=== PATIENT | male | born 1980 | race Caucasian/White ===

== ENCOUNTER 2018-07-28 03:45 | Emergency (ER) | payer OTHER ==
[~2018-07-28] VITALS: Ht 177.8 cm; Wt 118.2 kg
[2018-07-28 03:49] VITALS: BP 160/107; TEMP 97.6
[2018-07-28] MEDS ORDERED: LOTREL 10 MG-201 CAP PO (04:25)
[2018-07-28 04:45] VITALS: PULSE 83
== END 2018-07-28 04:45 | disposition home or self-care (01) ==
LOC: COL.ER 03:45
DX: S63.501A Unspecified sprain of right wrist, initial encounter (principal); W01.0XXA Fall on same level from slipping, tripping and stumbling without subsequent striking against object, initial encounter; Y92.009 Unspecified place in unspecified non-institutional (private) residence as the place of occurrence of the external cause

== ENCOUNTER 2019-01-20 08:53 | Emergency (ER) | payer OTHER ==
[~2019-01-20] VITALS: Ht 177.8 cm; Wt 118.2 kg
[~2019-01-20 08:53] MED LIST: LOTREL 10 MG-201 CAP PO
[2019-01-20] MEDS ORDERED: LOTENSIN 1010 MG/TAB PO (09:01)
[2019-01-20] MEDS ORDERED: NORVASC 5MG5 MG/TAB PO (09:01)
[2019-01-20] MEDS ORDERED: PEPCID 20MG TAB20 MG PO (09:02)
[2019-01-20] MEDS ORDERED: HCTZ 25MG TAB25 MG PO (09:02)
[2019-01-20 09:14] LABS: BASO # 0.1 (0.0-0.2); BASO % 0.5 % (0.0-2.0); EOS # 0.2 (0.0-0.7); EOS % 1.9 % (0-4.0); GRAN # 7.5 (1.4-6.5); GRAN % 68.5 % (42.2-75.2); HEMATOCRIT 49.3 % (42.0-52.0); HEMOGLOBIN 16.3 g/dl (13.5-18.0); LYMPH # 2.6 (1.2-3.4); LYMPH % 23.2 % (20.0-51.0); MEAN CELL VOLUME 83 fl (80.0-100.0); MEAN CORPUSCULAR HEMOGLOBIN 28 pg (27.0-31.0); MEAN CORPUSCULAR HGB CONC 33 g/dl (33.0-37.0); MEAN PLATELET VOLUME 8.7 fl (7.4-10.4); MONO # 0.6 (0.1-0.6); MONO % 5.4 % (1.7-9.3); PLATELET COUNT 324 K/mm3 (130-400); RED BLOOD COUNT 5.93 M/mm3 (4.20-5.60); REDCELL DISTRIBUTION WIDTH-CV 13.5 % (11.5-14.5)
[2019-01-20 09:23] LABS: ALANINE AMINOTRANSFERASE 56 U/L (21-72); ALBUMIN 4.5 gm/dL (3.5-5.0); ALKALINE PHOSPHATASE 89 U/L (50-136); ANION GAP 15 mmol/L (7-16); AST,SGOT 62 U/L (15-37); BILIRUBIN,TOTAL 0.5 mg/dL (0.0-1.0); BLOOD UREA NITROGEN 10 mg/dL (9-20); CALCIUM 9.9 mg/dL (8.4-10.2); CARBON DIOXIDE 26 mmol/L (22-30); CHLORIDE 103 mmol/L (98-107); CREATININE, serum 0.73 (0.66-1.25); GLUCOSE 118 mg/dL (74-106); LIPASE 132 U/L (23-300); SODIUM 143 mmol/L (137-145)
[2019-01-20 09:54] LABS: TROPONIN-I < 0.012 ng/mL (0.000-0.035)
[2019-01-20 13:37] VITALS: BP 110/80; PULSE 70; TEMP 99.5
== END 2019-01-20 13:37 | disposition home or self-care (01) ==
LOC: COL.ER 08:53
PROVIDERS: Physician Assistant
DX: R07.89 Other chest pain (principal); I10 Essential (primary) hypertension; K21.9 Gastro-esophageal reflux disease without esophagitis
CPT/HCPCS: C9113; J1885; J2060; J7030